=== PATIENT | female | born 1995 | race Caucasian/White ===

== ENCOUNTER 2019-09-07 09:40 | Outpatient (RCR) | payer OTHER, SELFPAY ==
[2019-09-07 11:07] LABS: Hematocrit 32.7 % (37.0-47.0); Hemoglobin 10.8 g/dL (12.0-15.0)
[2019-09-07 11:19] LABS: Glucose 1 Hour PP 50gm Dose 94 mg/dL
[2019-09-07 11:59] LABS: HIV 1/2 Ab P24 Ag Result Negative (Negative)
[2019-09-07 12:19] LABS: Vitamin D 25 Hydroxy 43.5 ng/mL
[2019-09-18] MEDS: RHO(D) IMMUNE GLOBULIN 300 MCG SYRINGE IM (17:53)
== END 2019-12-06 23:59 | disposition home or self-care (01) ==
LOC: ANHLAB 09:40
PROVIDERS: PCP Obstetrics & Gynecology Gynecology; Visit Provider Obstetrics & Gynecology Gynecology
DX: Z36.89 Encounter for other specified antenatal screening (principal); Z29.13 Encounter for prophylactic Rho(D) immune globulin; O36.0990 Maternal care for other rhesus isoimmunization, unspecified trimester, not applicable or unspecified; Z3A.00 Weeks of gestation of pregnancy not specified
CPT/HCPCS: 36415; 82306; 82947; 85014; 85018; 86703; 90384; 96372; G0432; J2790

== ENCOUNTER 2019-10-30 09:53 | Outpatient (CLI) | payer MEDICAID, SELFPAY ==
[2019-10-30 10:26] LABS: Alanine Aminotransferase 112 U/L (4-35); Albumin Level 3.7 g/dL (3.5-5.1); Alkaline Phosphatase 162 U/L (38-126); Aspartate Amino Transferase 71 U/L (14-36); Bilirubin,Total 0.6 mg/dL (0.2-1.3); Blood Urea Nitrogen 5 mg/dL (7-17); Calcium 9.5 mg/dL (8.4-10.2); Carbon Dioxide 22 mmol/L (22-30); Chloride 102 mmol/L (98-107); Estimated Glomerular Filt Rate > 60; Glucose 93 mg/dL (65-105); Potassium 4.3 mmol/L (3.4-5.0); Sodium 136 mmol/L (137-145)
[2019-11-04 20:26] LABS: Chenodeoxycholic Acid 8.6 umol/L (< OR = 3.9); Cholic Acid 9.8 umol/L (< OR = 2.8); Deoxycholic Acid 5.2 umol/L (< OR = 2.3); Total Bile Acids 23.6 umol/L (< OR = 8.3)
== END 2019-10-30 09:54 | disposition home or self-care (01) ==
PROVIDERS: PCP Obstetrics & Gynecology Gynecology; Visit Provider Obstetrics & Gynecology Gynecology
DX: Z34.03 Encounter for supervision of normal first pregnancy, third trimester (principal)
CPT/HCPCS: 36415; 80053; 82542

== ENCOUNTER 2019-10-31 14:41 | Outpatient (CLI) | payer BC, MEDICAID, SELFPAY ==
--- NOTE | ~2019-10-31 | US_ITS ---
EXAMINATION: US right upper quadrant DATE: 10/31/2019 15:15 INDICATION: Abnormal liver function tests. Third trimester of . TECHNIQUE: Multiple grayscale and Doppler ultrasound images of the abdomen were obtained. COMPARISON: None FINDINGS: The pancreas is obscured by bowel gas. The liver is normal without focal lesion. No liver s urface nodularity. There is normal flow in main portal vein. The gallbladder is normal in size. No ga llstones or gallbladder wall thickening. There was no sonographic Dunlap sign. The common duct is nor mal and measures 2 mm. IMPRESSION: 1. Normal right upper quadrant ultrasound. Reviewed, dictated and finalized at location A. NISTRATIVE LIBRARY ASSISTANT
== END 2019-10-31 14:42 | disposition home or self-care (01) ==
LOC: ANHIMG 14:49
PROVIDERS: Visit Provider Obstetrics & Gynecology Gynecology
DX: O26.613 Liver and biliary tract disorders in pregnancy, third trimester (principal)
CPT/HCPCS: 76705; J0330; J1100; J2405; J2704

== ENCOUNTER 2019-11-03 11:01 | Outpatient (RCR) | payer BC, MEDICAID, SELFPAY ==
[2019-11-03 12:58] VITALS: BP 111/80; PULSE 109
== END 2019-11-19 13:21 | disposition home or self-care (01) ==
LOC: ANHOBOP 11:01
PROVIDERS: Visit Provider Obstetrics & Gynecology Gynecology
DX: O26.613 Liver and biliary tract disorders in pregnancy, third trimester (principal); Z3A.34 34 weeks gestation of pregnancy
CPT/HCPCS: 59025

== ENCOUNTER 2019-11-11 08:20 | Observation (INO) | payer BC, MEDICAID, SELFPAY ==
[2019-11-11 08:38] VITALS: TEMP 36.6
[2019-11-11 08:46] VITALS: BP 128/109; PULSE 128
[2019-11-11 09:01] VITALS: BP 114/73; PULSE 106
[2019-11-11 09:16] VITALS: BP 117/72; PULSE 103
[2019-11-11 09:31] VITALS: BP 114/74; PULSE 103
[2019-11-11] MEDS: ONDANSETRON INJ 4 MG/2 ML VIAL IV PUSH (09:55)
[2019-11-11] MEDS: LACTATED RINGERS 1,000 ML 125 ML IV CONT (09:55)
[2019-11-11 10:24] LABS: Influenza Control Positive
--- NOTE | 2019-11-11 10:34 | OBADM ---
This patient, Hellen Gutierrez, admitted to the OB room OB Post 115 for observation. Patient/family oriented to hospital policies and general routines including ID bracelet, bed and alarms, visiting hours, pain management, procedures, bathroom and other care routines, personal items, smoking policy, room service/diet, and visiting hours. Patient/Family are encouraged to report perceived risks to care and to ask questions if they do not understand what they are told or what they should do.
--- NOTE | 2019-12-07 09:04 | PM.OBTRLD ---
OB - Triage/Final Diagnosis Visit Information Comments/Additional reasons for admission: nausea and cough Evaluation Laboratory results: Laboratory Tests 11/11/19 10:05 Influenza Types A,B Ag Negative
== END 2019-11-11 12:57 | disposition home or self-care (01) ==
PROVIDERS: Admitting Provider Obstetrics & Gynecology; Visit Provider Obstetrics & Gynecology
DX: O26.893 Other specified pregnancy related conditions, third trimester (principal); R11.0 Nausea; R05 Cough; Z3A.35 35 weeks gestation of pregnancy
CPT/HCPCS: 87804; 96361; 96374; G0378; G0379; J2405; J7120

== ENCOUNTER 2019-11-17 11:56 | Outpatient (RCR) | payer BC, MEDICAID, SELFPAY ==
[2019-11-01] VITALS (8 sets, daily range): BP systolic 101–104; BP diastolic 65–70; PULSE 83–89; O2SAT 100
[2019-11-05 17:02] VITALS: BP 101/75; PULSE 95
[2019-11-07 17:08] VITALS: BP 104/63; PULSE 80
[2019-11-09 16:16] LABS: Alanine Aminotransferase 53 U/L (4-35); Aspartate Amino Transferase 39 U/L (14-36); Bilirubin,Total 0.7 mg/dL (0.2-1.3)
[2019-11-09 16:38] VITALS: BP 109/66; PULSE 98
[2019-11-15 10:56] VITALS: BP 110/74; PULSE 83
[2019-11-17 13:51] VITALS: BP 107/65; PULSE 93
== END 2019-11-19 13:20 | disposition home or self-care (01) ==
LOC: ANHOBOP 11:56
PROVIDERS: Family Provider Obstetrics & Gynecology Gynecology; Visit Provider Obstetrics & Gynecology Gynecology
DX: O26.613 Liver and biliary tract disorders in pregnancy, third trimester (principal); Z3A.34 34 weeks gestation of pregnancy; Z3A.35 35 weeks gestation of pregnancy; Z3A.36 36 weeks gestation of pregnancy
CPT/HCPCS: 36415; 59025; 82247; 84450; 84460

== ENCOUNTER 2019-11-18 05:05 | Inpatient (IN) | payer BC, MEDICAID, SELFPAY ==
[2019-11-18] VITALS (189 sets, daily range): BP systolic 94–137; BP diastolic 45–101; PULSE 85–159; RESP 20; TEMP 36.9–38.1; O2SAT 94–100; BMI 32.4
--- NOTE | 2019-11-18 05:41 | LDADM ---
This patient, Hellen Gutierrez, was admitted to Labor/Delivery/Recovery 105 on 11/18/19 at 05:05. Plans for labor, pain management and were discussed with patient. Patient/family oriented to hospital policies and general routines including ID bracelet, bed and alarms, visiting hours, pain management, procedures, bathroom and other care routines, personal items, smoking policy, room service/diet and guest tray routines, infant security routines, and visiting hours. Patient/Family are encouraged to report perceived risks to care and to ask questions if they do not understand what they are told or what they should do. See OBIX for further documentation.
[2019-11-18 05:43] LABS: Basophils Percent Auto 0.2 % (0.2-1.2); Eosinophils Absolute Auto 0.1 K/mm3 (0-0.3); Eosinophils Percent Auto 0.5 % (0-4.4); Hematocrit 36.5 % (37.0-47.0); Hemoglobin 11.9 g/dL (12.0-15.0); Immature Granulocyte Absolute 0.06 K/mm3 (0.00-0.031); Immature Granulocyte Percent A 0.5 % (0-0.5); Lymphocytes Absolute Auto 1.51 K/mm3 (0.9-3.2); Lymphocytes Percent Auto 13.2 % (18.3-44.2); Mean Corpuscular HGB Conc 32.6 g/dl (32-36); Mean Corpuscular Hemoglobin 28.5 pg (26-34); Mean Corpuscular Volume 87.5 fl (80-100); Mean Platelet Volume 11.3 fl (7.4-10.4); Monocytes Absolute Auto 0.6 K/mm3 (0.1-0.6); Monocytes Percent Auto 5.4 % (2.6-8.5); Neutrophils Absolute Auto 9.1 K/mm3 (1.3-6.7); Neutrophils Percent Auto 80.2 % (45.5-73.1); Platelet Count Result 210 k/mm3 (150-375); Red Blood Count 4.17 M/mm3 (4.2-5.4); Red Cell Distribution Width 14.6 % (11.5-14.5); White Blood Count 11.4 K/mm3 (4.5-10.0)
[2019-11-18 06:35] LABS: Hepatitis B Surface Antigen Negative (Negative)
[2019-11-18 06:45] LABS: HIV 1/2 Ab P24 Ag Result Negative (Negative)
[2019-11-18] MEDS: LACTATED RINGERS 1,000 ML 125 ML IV CONT ×3 (06:53→15:24)
[2019-11-18 07:18] LABS: Rubella IgG Antibody 13.4 IU/ML
--- NOTE | 2019-11-18 09:19 | WPDOBADMIT ---
Obstetrics - Admit Note Admission Note: record reviewed. No pertinent additions to the history and/or any subsequent changes in the physical findings that are not consistent with the expected course of the were found. Additions to the history and/or subsequent changes in the physical findings follow. Here for MIL at 37 wks for cholestasis of . Cervix 1-2/th/-2 AROM with clear fluid. FHTs reactive.
--- NOTE | 2019-11-18 13:21 | WPDANESEPP ---
Anes - Eval Pre Procedure Procedure: Labor Epidural Date/Time: 11/18/19 13:21 Pre Op Diagnosis: PREIN inpatient Patient Data Age: 24 Gender: F Height: 1.65 m Weight: 88.5 kg Last Vital Signs Temp 36.9 C 11/18/19 13:03 Pulse 90 11/18/19 13:01 Resp 20 11/18/19 07:52 BP 123/101 H 11/18/19 13:01 Allergies Allergy/AdvReac Type Severity Reaction Status Date / Time Penicillins Allergy Mild Rash Verified 01/01/09 10:55 Home Medications Medication Instructions Recorded Confirmed Type PNV cmb#95-ferrous fumarate-FA 1 tablet PO DAILY 11/01/19 11/18/19 History [] ergocalciferol (vitamin D2) 50,000 unit PO WEEKLY 11/01/19 11/18/19 History [Vitamin D2] ferrous sulfate 325 mg PO DAILY 11/01/19 11/18/19 History ursodiol 300 mg PO TID 11/01/19 11/18/19 History Laboratory Tests 11/18/19 11/18/19 11/18/19 05:32 05:32 05:32 WBC 11.4 K/mm3 H K/mm3 (4.5-10.0) RBC 4.17 M/mm3 L M/mm3 (4.2-5.4) Hgb 11.9 g/dL L g/dL (12.0-15.0) Hct 36.5 % L % (37.0-47.0) MCV 87.5 fl fl (80-100) MCH 28.5 pg pg (26-34) MCHC 32.6 g/dl g/dl (32-36) RDW 14.6 % H % (11.5-14.5) Plt Count 210 k/mm3 k/mm3 (150-375) MPV 11.3 fl H fl (7.4-10.4) Immature Gran % (Auto) 0.5 % % (0-0.5) Neut % (Auto) 80.2 % H % (45.5-73.1) Lymph % (Auto) 13.2 % L % (18.3-44.2) [place] % (Auto) 5.4 % % (2.6-8.5) Eos % (Auto) 0.5 % % (0-4.4) Baso % (Auto) 0.2 % % (0.2-1.2) Lymph # (Auto) 1.51 K/mm3 K/mm3 (0.9-3.2) [place] # (Auto) 0.6 K/mm3 K/mm3 (0.1-0.6) Eos # (Auto) 0.1 K/mm3 K/mm3 (0-0.3) Baso # (Auto) 0.0 K/mm3 K/mm3 (0.0-0.1) Abs Immat Gran (auto) 0.06 K/mm3 H K/mm3 (0.00-0.031) Absolute Neuts (auto) 9.1 K/mm3 H K/mm3 (1.3-6.7) Absolute Nucleated RBC 0.0 K/mm3 K/mm3 (0.0-0.012) Nucleated RBC % 0.0 % % (0.0-0.2) RPR Pending Hep Bs Antigen HIV 1&2 Ab/P24 Ag 4thGn Negative (Negative) Rubella IgG Antibody Blood Type Antibody Screen Antibody Identification Antigen Identification [place], IgG Interpret [place], Poly Interpret [place], Complement Interp 11/18/19 11/18/19 11/18/19 05:32 05:32 05:32 WBC RBC Hgb Hct MCV MCH MCHC RDW Plt Count MPV Immature Gran % (Auto) Neut % (Auto) Lymph % (Auto) [place] % (Auto) Eos % (Auto) Baso % (Auto) Lymph # (Auto) [place] # (Auto) Eos # (Auto) Baso # (Auto) Abs Immat Gran (auto) Absolute Neuts (auto) Absolute Nucleated RBC Nucleated RBC % RPR Hep Bs Antigen Negative (Negative) HIV 1&2 Ab/P24 Ag 4thGn Rubella IgG Antibody 13.4 IU/ML IU/ML (10 - ) Blood Type A Negative Antibody Screen Positive Antibody Identification Passive Due to RH Imm Glob Antigen Identification Cancelled [place], IgG Interpret Not Performed [place], Poly Interpret Negative [place], Complement Interp Not Performed Patient hx anesthesia problems: none Family hx anesthesia problems: none PMFSH Family History Family History Other No pertinent family history Social History Social History Smoking status: Never smoker Substance use: never Gender identity (if verbalized by the patient): Female Spiritual care concer
[2019-11-19] VITALS (32 sets, daily range): BP systolic 108–143; BP diastolic 61–87; PULSE 82–162; RESP 12–14; TEMP 36.6–37.6; O2SAT 96–100
[2019-11-19] MEDS: ceFAZolin 2 GM/D5W 50 ML 2 GM/50 ML BAG IVPB (00:53)
--- NOTE | 2019-11-19 02:06 | PM.OBPRVD ---
OB - Delivery Note Procedure Delivery date: 11/19/19 Procedure: Intrapartal events: None Induction method: per pitocin protocol Delivery augmentation: rupture of membranes Delivery monitor: external FHT and external uterine Route of delivery: Laceration description: Perineal - 2nd Degree Delivery repair: vicryl Specimen: Yes Estimated blood loss (mL): 100 Anesthesia type: Epidural Disposition: floor Narrative: MIL for cholestasis of at 37 wks Baby Date of : 11/19/19 Weeks of gestation at delivery: 37 gender: Female Weight (pounds): 7 Weight (ounces): 9 presentation: vertex Placenta delivery description: Spontaneous cord vessel description: 3 Vessels score one minute: 9 score five minutes: 9
--- NOTE | 2019-11-19 02:07 | PM.OBDSVD ---
DS: Diagnosis Discharge Diagnosis (1) Cholestasis of : Code(s): O26.619 - Liver and biliary tract disorders in , unspecified trimester; K83.1 - Obstruction of bile duct Status: Acute (2) 37 or more weeks gestation of : Status: Acute (3) (normal spontaneous vaginal delivery): Code(s): O80 - Encounter for full-term uncomplicated delivery Status: Acute OB - DS: Summary OB Procedures : NST and Ultrasound OB Procedures Intrapartum: Spontaneous Vag Delivery OB Procedures: : None Peripartum Data Delivery Method: Natural Vaginal Laceration description: Perineal - 2nd Degree complications: none Status at Discharge Functional status at discharge: independent ambulation Overall status at discharge: patient is progressing back to baseline Time Spent with Patient Time attestation: Total time spent providing and/or coordinating discharge services: DS: Data Data Completed and Pending Labs on day of discharge: Labs from last 24 hours 11/18/19 11/18/19 11/18/19 05:32 05:32 05:32 WBC RBC Hgb Hct MCV MCH MCHC RDW Plt Count MPV Immature Gran % (Auto) Neut % (Auto) Lymph % (Auto) [place] % (Auto) Eos % (Auto) Baso % (Auto) Lymph # (Auto) [place] # (Auto) Eos # (Auto) Baso # (Auto) Abs Immat Gran (auto) Absolute Neuts (auto) Absolute Nucleated RBC Nucleated RBC % RPR Hep Bs Antigen Negative HIV 1&2 Ab/P24 Ag 4thGn Rubella IgG Antibody 13.4 Blood Type A Negative Antibody Screen Positive Antibody Identification Passive Due to RH Imm Glob Antigen Identification Cancelled [place], IgG Interpret Not Performed [place], Poly Interpret Negative [place], Complement Interp Not Performed 11/18/19 11/18/19 11/18/19 05:32 05:32 05:32 WBC 11.4 H RBC 4.17 L Hgb 11.9 L Hct 36.5 L MCV 87.5 MCH 28.5 MCHC 32.6 RDW 14.6 H Plt Count 210 MPV 11.3 H Immature Gran % (Auto) 0.5 Neut % (Auto) 80.2 H Lymph % (Auto) 13.2 L [place] % (Auto) 5.4 Eos % (Auto) 0.5 Baso % (Auto) 0.2 Lymph # (Auto) 1.51 [place] # (Auto) 0.6 Eos # (Auto) 0.1 Baso # (Auto) 0.0 Abs Immat Gran (auto) 0.06 H Absolute Neuts (auto) 9.1 H Absolute Nucleated RBC 0.0 Nucleated RBC % 0.0 RPR Pending Hep Bs Antigen HIV 1&2 Ab/P24 Ag 4thGn Negative Rubella IgG Antibody Blood Type Antibody Screen Antibody Identification Antigen Identification [place], IgG Interpret [place], Poly Interpret [place], Complement Interp Discharge Plan Discharge Attending physician on discharge: Jodi Sandoval Discharging Clinician: Jodi Sandoval Anticipated Discharge Date/Time: 11/21/19 07:37 Patient Disposition: Home, Self-Care Activity: pelvic rest Diet: regular Patient Instructions: Antibiotic Form Stand Alone Forms: General Discharge Information Follow-up/Referrals: Jodi Sandoval MD [Primary Care Provider] - 6 Weeks Discharge Medications: Continued ursodiol 300 mg Capsule 300 mg PO TID RF: 0 Held ferrous sulfate 325 mg (65 mg iron) Tablet 325 mg PO DAILY RF: 0 Hold Instructions: Resume on 11/21/19. ergocalciferol (vitamin D2) [Vitamin D2] 1,250 mcg (50,000 unit) Capsule 50,000 unit PO WEEKLY RF: 0 Hold Instructions: Resume on 11/21/19. PNV b#95-ferrous fumarate-FA [] 28 mg iron- 800 mcg Tablet 1 tablet PO DAILY RF: 0 Hold Instructions: Resume on 11/21/19. Date of admission: 11/18/19 05:05 Primary Care Provider: Jodi Sandoval Admitting Provider: Jodi Sandoval Attending physician on admission: Jodi Sandoval Condition: Stable Health Concerns: Received DepoProvera 11/20/19
[2019-11-19] MEDS: WITCH HAZEL 40 PADS 1 PAD TOPICAL (04:19)
[2019-11-19] MEDS: IBUPROFEN 600 MG TABLET PO ×2 (04:19→17:10)
[2019-11-19] MEDS: BENZOCAINE 20% AER SPR (*SP) 56 GM CAN 1 SPRAY TOPICAL (04:20)
[2019-11-19] MEDS: DOCUSATE SODIUM 100 MG CAPSULE PO ×2 (08:50→17:10)
[2019-11-19] MEDS: ursodioL 300 MG CAPSULE PO ×2 (08:50→17:10)
[2019-11-19] MEDS: MULTIVIT/MIN/PREN/FOL AC/IRON TABLET 1 TAB PO (08:50)
[2019-11-19 10:49] LABS: Rapid Plasma Reagin Non-Reactive (NonReactive)
--- NOTE | 2019-11-19 13:50 | PC.NURSE ---
1350 Breast feeding note; mother called nurse to room to assist and evaluate breast feeding as nurse had requested her do to. Report was that infant was probably latching shallow for feedings, mother reporting tenderness. Nurse instructed mother how to assess that baby was latching with deep latch, and mother agreed that probably baby had been latching shallow. Mother was shown cross cradle position alignment, with use of nose to nipple latch-on technique, holding breast in ?U? hold and asymmetrical latch on discussing rational for each. Baby awake, eager; several attempts required; cross-cradle position used, then switched to football on mother's L side. Baby latched after several attempts, apparent deep latch; maintained latch and demonstrated vigorous, rhythmic sucking. Mother stated she could feel the difference with a deeper latch; pt's significant other present and also was shown baby at breast with deep latch and rhythmic sucking. Reviewed frequency and duration of feedings, q2-3 hours and on demand, and nipple care. Mother reported she was able to get infant latched to second side, using cross-cradle position, and latch was good. Mother encouraged to call for nurse assistance at any feeding, especially if having difficulty getting latched correctly. She agreed and voiced understanding
[2019-11-20 01:36] VITALS: BP 112/58; PULSE 86; RESP 18; TEMP 36.4
[2019-11-20 05:40] LABS: Hematocrit 28.9 % (37.0-47.0); Hemoglobin 9.3 g/dL (12.0-15.0)
--- NOTE | 2019-11-20 07:38 | PM.OBPNVD ---
OB - PN: Subj Subjective Date/time seen: 11/20/19 07:38 Patient comments: no complaints and pain well controlled OB - PN: Obj Data Labs CBC & Chem 7: 11/20/19 05:11 Labs: Laboratory Results - last 24 hr 11/18/19 11/20/19 05:32 05:11 Hgb 9.3 L Hct 28.9 L RPR Non-reactive OB - PN A/P Plan day: 1 Plan: routine care Comments: Plans DepoProvera Time Spent With Patient Time: Total time spent is greater than 50% in coordination of care (as documented) at patient's floor/unit and/or counseling patient: Exam : Bimanual exam- vagina & uterus: other (Uterus firm, nt @U)
--- NOTE | 2019-11-20 07:54 | WPDANLDPN2 ---
Anes-Prog Note L&D Date/Time: 11/20/19 07:54 Comfortable throughout: labor and delivery Neuraxial method: epidural Epidural/Spinal procedure site: clean & non-tender Neuro status: Neuro function grossly intact. Cardiovascular status: normal Respiratory status: normal Airway patency: baseline Mental status: baseline Post-Op hydration status: normal Vital Signs: Last Vital Signs Temp 36.4 C 11/20/19 01:36 Pulse 86 11/20/19 01:36 Resp 18 11/20/19 01:36 BP 112/58 L 11/20/19 01:36 Pulse Ox 99 11/19/19 08:00 Post-procedural complaints: none Patient feedback: Patient satisfied with anesthetic care.
[2019-11-20 08:15] VITALS: BP 93/54; PULSE 91; RESP 16; TEMP 36.8; O2SAT 98
[2019-11-20] MEDS: MULTIVIT/MIN/PREN/FOL AC/IRON TABLET 1 TAB PO (09:57)
[2019-11-20] MEDS: POLYSACCHARIDE IRON COMPLEX 150 MG CAPSULE PO ×2 (09:57→17:22)
[2019-11-20] MEDS: DOCUSATE SODIUM 100 MG CAPSULE PO (09:57)
[2019-11-20] MEDS: ursodioL 300 MG CAPSULE PO ×3 (09:59→20:42)
[2019-11-20] MEDS: IBUPROFEN 600 MG TABLET PO ×2 (10:00→17:22)
--- NOTE | 2019-11-20 13:50 | PC.NURSE ---
Consult with pt., mother reports she has been mostly bottle feeding due to difficulties with latching. Discussed mother's options if she wished to breastfeed, mother can call out for assist with latching each feeding. Mother states she is also concerned infant is not satisfied with just . Reviewed once is bottle fed larger amounts of formula, may not be satisfied with colostrum volume. Mother could put infant to breast each feeding then offer small amounts of formula to satisfy . Mother states she would like assist with feeding and will call out next feeding.
[2019-11-20 18:50] VITALS: BP 114/73; PULSE 89; RESP 18; TEMP 36.3
[2019-11-20] MEDS: medroxyPROGESTERone ACETATE IM 150 MG/ML SYR IM (20:43)
--- NOTE | 2019-11-21 07:36 | P.PNOB_ITS ---
OB - PN: Subj Subjective Date/time seen: 11/21/19 07:36 Patient comments: no complaints and pain well controlled baby status: doing well [employer] feeding status: breast and bottle feeding OB - PN: Obj Data Labs CBC & Chem 7: 11/20/19 05:11 OB - PN A/P Plan day: 2 Plan: routine care, discharge home and follow up 6 weeks Comments: DepoProvera Time Spent With Patient Time: Total time spent is greater than 50% in coordination of care (as documented) at patient's floor/unit and/or counseling patient: Exam : Bimanual exam- vagina & uterus: other (Uterus firm, nt @U)
[2019-11-21 07:50] VITALS: BP 115/70; PULSE 71; RESP 16; TEMP 36.6; O2SAT 98
[2019-11-21] MEDS: IBUPROFEN 600 MG TABLET PO (08:54)
[2019-11-21] MEDS: DOCUSATE SODIUM 100 MG CAPSULE PO (08:56)
[2019-11-21] MEDS: ursodioL 300 MG CAPSULE PO (08:56)
[2019-11-21] MEDS: MULTIVIT/MIN/PREN/FOL AC/IRON TABLET 1 TAB PO (08:56)
[2019-11-21] MEDS: POLYSACCHARIDE IRON COMPLEX 150 MG CAPSULE PO (08:56)
[2019-11-21] MEDS: WITCH HAZEL 40 PADS 1 PAD TOPICAL (08:57)
[2019-11-21] MEDS: BENZOCAINE 20% AER SPR (*SP) 56 GM CAN 1 SPRAY TOPICAL (08:57)
--- NOTE | 2019-11-21 10:00 | PC.NURSE ---
Mother is able to independently latch infant with appropriate positioning/alignment. She denies any nipple discomfort, is feeding as required and waking to feed if needed. has had several effective feedings, followed with supplementation in the past 24 hours, and is currently meeting outcomes for weight, output, jaundice and feeding frequencies. Mother states she feels confident to continue current plan at home. Mother states she may discontinue supplementation once her milk is in and she feels is satisfied with . Reviewed transition to breast milk, signs of adequate intake, and engorgement/relief. Instructed to call ICP if intake/output less than required. Reviewed regular medications mother is taking. Information provided per Rosaura. Reviewed community resources on the [facility] and in the Mom/Baby guide. Information on outpatient services provided. Mother has no further questions at this time.
[2019-11-23 11:20] VITALS: BP 103/67; PULSE 82; RESP 18; TEMP 36.8
== END 2019-11-21 10:30 | disposition home or self-care (01) | DRG 988 ==
LOC: ANHLDR 11-19 02:10 → ANHOB2 11-19 04:48
PROVIDERS: Admitting Provider Obstetrics & Gynecology Gynecology; PCP Obstetrics & Gynecology Gynecology; Visit Provider Obstetrics & Gynecology Gynecology
DX: K83.1 Obstruction of bile duct (principal); O26.62 Liver and biliary tract disorders in childbirth; Z37.0 Single live birth; Z3A.36 36 weeks gestation of pregnancy; Z23 Encounter for immunization; O70.1 Second degree perineal laceration during delivery; O76 Abnormality in fetal heart rate and rhythm complicating labor and delivery
CPT/HCPCS: 36415; 85014; 85018; 85025; 86592; 86703; 86762; 86850; 86880; 86900; 86901; 87340; 88307; A9270; G0432; J0131; J0690; J1050; J2590; J2795; J7120

== ENCOUNTER → 2021-06-17 02:50 | Outpatient (CLI) | payer BC, MEDICAID, SELFPAY ==
[2021-06-18 07:19] LABS: SARS-CoV-2 RNA PCR Negative
== END ==
PROVIDERS: PCP Nurse Practitioner Family; Visit Provider Nurse Practitioner Family
DX: Z20.822 Contact with and (suspected) exposure to COVID-19 (principal); R05 Cough
CPT/HCPCS: C9803; U0003; U0005